=== PATIENT | male | born 1985 | race African-American/Black ===

== ENCOUNTER 2021-01-04 14:10 | Emergency (ER) | payer SELFPAY ==
[2021-01-04] MEDS ORDERED: HYDROCODONE/APAP 5/325 MG TAB ONE (16:09)
[2021-01-04] MEDS ORDERED: LIDOCAINE 1% MPF 30 ML VIAL ONE (16:09)
--- NOTE | 2021-01-04 16:59 | ER ---
Nurse's Notes [facility] Name: Jason Hernández Jr Age: 35 yrs Sex: Male : 1985 Arrival Date: 01/04/2021 Time: 14:10 Bed 4 Private MD: Diagnosis: Cutaneous abscess of perineum Presentation: 01/04 14:28 Chief complaint: Patient states: L sided perineum area abscess for 4 days. States there ll1 is some drainage, no fever. Coronavirus screen: Client denies travel out of the [place] in the last 14 days. At this time, the client does not indicate any symptoms associated with coronavirus-19. Ebola Screen: Patient denies travel to an Ebola-affected area in the 21 days before illness onset. Initial Sepsis Screen: Does the patient meet any 2 criteria? No. Patient's initial sepsis screen is negative. Does the patient have a suspected source of infection? Yes: Skin breakdown/wound. Risk Assessment: Do you want to hurt yourself or someone else? Patient reports no desire to harm self or others. Onset of symptoms was January 01, 2021. 14:28 Method Of Arrival: Ambulatory ll1 14:28 Acuity: JORJE 3 ll1 Historical: - Allergies: 14:29 No Known Allergies; ll1 - PMHx: 14:29 None; ll1 - PSHx: 14:29 None; ll1 - Immunization history:: Flu vaccine is up to date. - Social history:: Smoking status: Patient reports the use of cigarette tobacco products, smokes one-half pack cigarettes per day. Screenin:54 Abuse screen: Denies threats or abuse. Denies injuries from another. Nutritional tr6 screening: No deficits noted. Tuberculosis screening: No symptoms or risk factors identified. Fall Risk None identified. Assessment: 16:51 General: Appears distressed, uncomfortable, Behavior is cooperative, anxious. Pain: tr6 Complains of pain in perineum. Neuro: No deficits noted. Cardiovascular: No deficits noted. Respiratory: No deficits noted. GI: No deficits noted. : No deficits noted. EENT: No deficits noted. Derm: Abscess located on perineum is golf ball sized, Reports increased pain. Musculoskeletal: No deficits noted. 17:22 Reassessment: Patient appears in no apparent distress at this time. Patient and/or iw family updated on plan of care and expected duration. Pain level reassessed. Patient is alert, oriented x 3, equal unlabored respirations, skin warm/dry/pink. Vital Signs: 14:28 BP 115 / 82; Pulse 82; Resp 17; Temp 97.7; Pulse Ox 96% ; Weight 122.47 kg; Height 6 ll1 ft. 5 in. (195.58 cm); Pain 10/10; 14:28 Body Mass Index 32.02 (122.47 kg, 195.58 cm) ll1 ED Course: 14:10 Patient arrived in ED. as 14:28 Arm band placed on. ll1 14:29 Triage completed. ll1 15:25 Alfredo Johns PA is PHCP. cp 15:25 Alfredo Wolfe MD is Attending Physician. cp 15:26 Maria E Spencer, QASIM is Primary Nurse. tr6 16:53 Assist provider with I \T\ D: of an abscess on perianal Wound packed. iodoform gauze, tr6 Dressing with 4X4s, Patient tolerated poorly. 16:54 Patient has correct armband on for positive identification. Placed in gown. Bed in low tr6 position. Call light in reach. Side rails up X 1. Door closed. Noise minimized. Visitors limited. Lights dimmed. Moved to private room. Warm blanket given. 16:54 Patient did not have IV access during this emergency room visit. tr6 Administered Medications: 15:53 Not Given (no IV access. pt refused ): NS 0.9% 1000 ml IV at 1 bolus Per protocol; 1000 tr6 mL bolus 15:54 Drug: HYDROcodone-acetaminophen (5 mg-500 mg) 2 tabs Route: PO; tr6 17:20 Follow up: Response: No adverse reaction; Pain is decreased iw 15:55 CANCELLED (incorrect route): HYDROcodone-acetaminophen 5 mg-325 mg 2 tabs Feeding Tube tr6 once; RASS on ADMIN: Combtv4, Very Agttd3, Agttd2, Rstlss1, AlertClm0, Drwsy-1, Lt Sdtn-2, Mod Sdtn-3, Dp Sdtn-4, UnArsble-5 17:20 Drug: Clindamycin 600 mg Route: PO; iw 17:20 Follow up: Response: No adverse reaction iw 17:20 Drug: Bactrim (trimethoprim-sulfamethoxazole) (160 mg-800 mg (DS) 2 tablet Route: PO; iw 17:20 Follow up: Response: No adverse reaction iw Outcome: 16:59 Discharge ordered by . kenna 17:21 Discharged to home ambulatory, with family. iw 17:21 Condition: good 17:21 Discharge instructions given to patient, family, Instructed on discharge instructions, follow up and referral plans. medication usage, Demonstrated understanding of instructions, follow-up care, medications, Prescriptions given X 3. 17:22 Patient left the ED. iw Signatures: Gertrude Mares Irene, RN RN iw Alfredo Johns PA PA cp Lewis, Lynsay, RN RN ll1 Maria E Spencer RN RN tr6
--- NOTE | 2021-01-04 16:59 | EDPHYS ---
Physician Documentation [facility] Name: Jason Hernández Jr Age: 35 yrs Sex: Male : 1985 Arrival Date: 01/04/2021 Time: 14:10 Bed 4 Private MD: YOLANDA Physician Alfredo Wolfe HPI: 01/04 16:00 This 35 yrs old Black Male presents to ER via Ambulatory with complaints of Groin Pain, cp Boil. 16:00 The patient presents with an abscess of the perineum. cp 16:00 Description: draining, swollen, tense. Onset: The symptoms/episode began/occurred 4 cp day(s) ago. Associated signs and symptoms: Pertinent positives: drainage, Pertinent negatives: fever. Historical: - Allergies: 14:29 No Known Allergies; ll1 - PMHx: 14:29 None; ll1 - PSHx: 14:29 None; ll1 - Immunization history:: Flu vaccine is up to date. - Social history:: Smoking status: Patient reports the use of cigarette tobacco products, smokes one-half pack cigarettes per day. ROS: 16:05 Constitutional: Negative for body aches, chills, fever, poor PO intake. cp 16:05 Eyes: Negative for injury, pain, redness, and discharge. cp 16:05 Cardiovascular: Negative for chest pain. 16:05 Respiratory: Negative for cough, shortness of breath, wheezing. 16:05 Abdomen/GI: Negative for abdominal pain, nausea, vomiting, and diarrhea. 16:05 : Negative for urinary symptoms, testicular pain 16:05 Skin: Positive for abscess, of the perineum. 16:05 All other systems are negative. Exam: 16:10 Constitutional: The patient appears in no acute distress, alert, awake, non-toxic, well cp developed, well nourished, uncomfortable. 16:10 Head/Face: Normocephalic, atraumatic. cp 16:10 Eyes: Periorbital structures: appear normal, Conjunctiva: normal, no exudate, no injection, Sclera: no appreciated abnormality, Lids and lashes: appear normal, bilaterally. 16:10 Chest/axilla: Inspection: normal. 16:10 Cardiovascular: Rate: normal. 16:10 Respiratory: the patient does not display signs of respiratory distress, Respirations: normal, no use of accessory muscles. 16:10 Abdomen/GI: Inspection: abdomen appears normal, Palpation: abdomen is soft and non-tender, in all quadrants. 16:10 Skin: abscess, that is small, of the perineum, with drainage, that is purulent, with fluctuance, that is mild. Vital Signs: 14:28 BP 115 / 82; Pulse 82; Resp 17; Temp 97.7; Pulse Ox 96% ; Weight 122.47 kg; Height 6 ll1 ft. 5 in. (195.58 cm); Pain 10/10; 14:28 Body Mass Index 32.02 (122.47 kg, 195.58 cm) ll1 Procedures: 17:00 I \T\ D: Incision and drainage was performed for an abscess of the perineum Prepped with cp Betadine, Anesthetized with 6 ccs of mixture 1% lidocaine w/o epi and 0.5% marcaine. Incised with #11 blade. Drained moderate amount purulent fluid. bloody fluid. Packed with iodoform gauze, Dressing: sterile 4x4 gauze, the patient tolerated the procedure well. MDM: 15:28 Patient medically screened. cp 16:00 Differential diagnosis: abscess, cellulitis, sepsis, Fiordaliza's gangrene. 16:58 Data reviewed: vital signs, nurses notes. 16:58 Counseling: I had a detailed discussion with the patient and/or guardian regarding: the cp historical points, exam findings, and any diagnostic results supporting the discharge/admit diagnosis, to return to the emergency department if symptoms worsen or persist or if there are any questions or concerns that arise at home. Response to treatment: the patient's symptoms have markedly improved after treatment. Refusal of service: The patient/guardian displays adequate decision making capability and despite a detailed discussion of alternatives, benefits, risks, and consequences refuses: all lab tests, IV antibiotics. ED course: VSS. Will discharge to home for continued monitoring. Review of [place] prescription monitor website: narcotic score 220, sedative score 090, overdose risk score 250. 01/04 15:46 Order name: CBC with Diff 01/04 15:46 Order name: BMP cp 01/04 15:46 Order name: I\T\D Setup; Complete Time: 15:53 cp Administered Medications: 15:53 Not Given (no IV access. pt refused ): NS 0.9% 1000 ml IV at 1 bolus Per protocol; 1000 tr6 mL bolus 15:54 Drug: HYDROcodone-acetaminophen (5 mg-500 mg) 2 tabs Route: PO; tr6 17:20 Follow up: Response: No adverse reaction; Pain is decreased iw 15:55 CANCELLED (incorrect route): HYDROcodone-acetaminophen 5 mg-325 mg 2 tabs Feeding Tube tr6 once; RASS on ADMIN: Combtv4, Very Agttd3, Agttd2, Rstlss1, AlertClm0, Drwsy-1, Lt Sdtn-2, Mod Sdtn-3, Dp Sdtn-4, UnArsble-5 17:20 Drug: Clindamycin 600 mg Route: PO; iw 17:20 Follow up: Response: No adverse reaction iw 17:20 Drug: Bactrim (trimethoprim-sulfamethoxazole) (160 mg-800 mg (DS) 2 tablet Route: PO; iw 17:20 Follow up: Response: No adverse reaction iw Disposition: 01/04/21 16:59 Discharged to Home. Impression: Cutaneous abscess of perineum. - Condition is Stable. - Discharge Instructions: Incision and Drainage, Perianal Abscess. - Prescriptions for Clindamycin HCl 300 mg Oral Capsule - take 1 capsule by ORAL route every 6 hours for 10 days; 40 capsule. Tylenol- Codeine #3 300-30 mg Oral Tablet - take 2 tablets by ORAL route every 8-12 hours As needed; 15 tablet. Bactrim DS 800- 160 mg Oral Tablet - take 1 tablet by ORAL route every 12 hours for 10 days; 20 tablet. - Medication Reconciliation Form, Thank You Letter, Antibiotic Education, Prescription Opioid Use form. - Follow up: Private Physician; When: 48 Hours; Reason: Wound Recheck. - Problem is new. - Symptoms have improved. Signatures: Dispatcher [employer] EDMS Jazlyn Ribeiro RN RN iw Alfredo Johns PA PA cp Kenn Escobar RN RN ll1 Maria E Spencer RN RN tr6 Corrections: (The following items were deleted from the chart) 15:53 15:46 IV Saline Lock ordered. cp tr6 15:55 15:46 HYDROcodone-acetaminophen 5 mg-325 mg 2 tabs Feeding Tube once; RASS on ADMIN: tr6 Combtv4, Very Agttd3, Agttd2, Rstlss1, AlertClm0, Drwsy-1, Lt Sdtn-2, Mod Sdtn-3, Dp Sdtn-4, UnArsble-5 ordered. cp 17:22 16:59 01/04/2021 16:59 Discharged to Home. Impression: Cutaneous abscess of perineum. iw Condition is Stable. Forms are Medication Reconciliation Form, Thank You Letter, Antibiotic Education, Prescription Opioid Use. Follow up: Private Physician; When: 48 Hours; Reason: Wound Recheck. Problem is new. Symptoms have improved. cp
[2021-01-04] MEDS ORDERED: SMZ./TMP. 800/160 MG TABLET ONE (17:34)
[2021-01-04 17:50] VITALS: BP 115/82; TEMP 97.7; O2SAT 96
== END 2021-01-04 17:22 | disposition home or self-care (01) ==
LOC: ER 14:10
PROC: 0J9B0ZZ Drainage of Perineum Subcutaneous Tissue and Fascia, Open Approach (ICD-10-PCS; principal; 2021-01-04)
DX: L02.215 Cutaneous abscess of perineum (principal); F17.210 Nicotine dependence, cigarettes, uncomplicated
CPT/HCPCS: 99283